=== PATIENT | male | born 1985 | race African-American/Black ===

== ENCOUNTER 2016-10-24 19:39 | Inpatient (IN) | payer MEDICAID ==
[~2016-10-24] VITALS: Ht 180.3 cm; Wt 61.3 kg
[2016-10-24] MEDS ORDERED: SODIUM CHLORIDE 0.9% 1,000 ML IV ONE (19:45)
[2016-10-24 21:29] LABS: *AMPHETAMINES SCREEN URINE NEGATIVE (NEGATIVE); *BARBITURATES SCREEN URINE NEGATIVE (NEGATIVE); *BENZODIAZEPINES SCREEN URINE NEGATIVE (NEGATIVE); *COCAINE SCREEN URINE NEGATIVE (NEGATIVE); CANNABINOID URINE SCREEN PRESUMTIVE POSITIVE (NEGATIVE); METHADONE URINE SCREEN NEGATIVE (NEGATIVE); OPIATES URINE SCREEN NEGATIVE (NEGATIVE); PHENCYCLIDINE URINE SCREEN NEGATIVE (NEGATIVE)
[2016-10-24 22:31] LABS: CARBON DIOXIDE 27 mEq/L (21-32); CHLORIDE 108 mEq/L (98-107)
[2016-10-24 22:33] LABS: HEMOGLOBIN. 13.1 g/dL (14.0-18.0); MEAN CORPUSCULAR HEMOGLOBIN 30.7 pg (28.0-32.0); MEAN CORPUSCULAR VOLUME 86.9 fL (80.0-94.0); PLATELET 186 x1000/uL (130-400); RED BLOOD CELL COUNT 4.26 mill/uL (4.7-6.1); RED CELL DISTRIBUTION WIDTH 13.1 % (11.6-14.6)
[2016-10-24 22:53] LABS: PLATELET ESTIMATE NORMAL
[2016-10-25] VITALS (7 sets, daily range): BP systolic 90–101; BP diastolic 46–64
[2016-10-25] MEDS ORDERED: SODIUM CHLORIDE 0.45% 1,000 ML IV SCH (01:40)
[2016-10-25] MEDS ORDERED: ONDANSETRON HCL 4MG/2ML VIAL IV PRN (01:45)
[2016-10-25] MEDS ORDERED: IPRATROPIUM/ALBUTEROL 0.5-3(2.5)MG/3ML NEB INH PRN (01:45)
[2016-10-25] MEDS ORDERED: ENOXAPARIN 40MG/0.4ML SYR SUBCUT SCH (01:45)
[2016-10-25] MEDS ORDERED: HYDROCODONE/ACETAMINOPHEN 5/325MG TABLET PO PRN (01:45)
[2016-10-25] MEDS ORDERED: DIPHENHYDRAMINE 50MG/ML VIAL IV PRN (01:45)
[2016-10-25] MEDS ORDERED: HYDROMORPHONE HCL/PF 2MG/ML CPJ IV PRN ×2 (01:45→03:00)
[2016-10-25] MEDS ORDERED: ACETAMINOPHEN 325MG TABLET PO PRN ×2 (01:45→22:00)
[2016-10-25] MEDS ORDERED: CLONIDINE 0.1MG TABLET PO PRN (01:45)
[2016-10-25] MEDS ORDERED: DOCUSATE SODIUM 100MG CAPSULE PO PRN (01:45)
[2016-10-25] MEDS ORDERED: LORAZEPAM 2MG/ML CPJ IV PRN (01:45)
[2016-10-25] MEDS ORDERED: MAGNESIUM/ALUMINUM HYDROXIDE/SIMETHICONE 30ML UDC PO PRN (01:45)
[2016-10-25] MEDS ORDERED: GUAIFENESIN 200MG/10ML SUGAR FREE UDC PO PRN (01:45)
[2016-10-25] MEDS ORDERED: NA PHOS,M-B/NA PHOS,DI-BA ENEMA 118ML PR PRN ×2 (01:45→03:00)
[2016-10-25 02:46] LABS: CARBON DIOXIDE 27 mEq/L (21-32); CHLORIDE 113 mEq/L (98-107)
[2016-10-25] MEDS: SODIUM CHLORIDE 0.45% 1,000 ML IV SCH ×3 (03:42→21:12)
[2016-10-25 06:26] LABS: BASOPHILS % 0.5 % (0.0-2.0); EOSINOPHILS % 1.1 % (0.0-5.0); HEMATOCRIT. 38.7 % (42.0-52.0); HEMOGLOBIN. 13.3 g/dL (14.0-18.0); LYMPHOCYTES % 22.5 % (20.0-50.0); MEAN CORPUSCULAR VOLUME 87.7 fL (80.0-94.0); MEAN PLATELET VOLUME 9.3 fl (7.4-10.4); MONOCYTES % 10.5 % (2.0-8.0); NEUTROPHILS % 65.4 % (40.0-76.0); PLATELET 183 x1000/uL (130-400); RED BLOOD CELL COUNT 4.41 mill/uL (4.7-6.1); RED CELL DISTRIBUTION WIDTH 13.3 % (11.6-14.6)
[2016-10-25 07:30] LABS: CARBON DIOXIDE 26 mEq/L (21-32); CHLORIDE 111 mEq/L (98-107); HDL CHOLESTEROL 47 mg/dL (40-59); LDL CHOLESTEROL 72 mg/dL (5-100)
[2016-10-25] MEDS: ASPIRIN 81MG EC TABLET PO SCH (08:40)
[2016-10-25] MEDS: ENOXAPARIN 40MG/0.4ML SYR SUBCUT SCH (08:40)
[2016-10-25] MEDS ORDERED: ASPIRIN 81MG EC TABLET PO SCH (09:00)
[2016-10-26] VITALS: BP 109/55
[2016-10-26 04:00] VITALS: BP 99/63
[2016-10-26 08:00] VITALS: BP 102/67
[2016-10-26] MEDS: ASPIRIN 81MG EC TABLET PO SCH (08:32)
[2016-10-26] MEDS: ENOXAPARIN 40MG/0.4ML SYR SUBCUT SCH (08:33)
[2016-10-26] MEDS: SODIUM CHLORIDE 0.45% 1,000 ML IV SCH ×2 (11:13→11:34)
[2016-10-26 12:00] VITALS: BP 122/66
[2016-10-26 12:48] VITALS: BP 102/67
== END 2016-10-26 13:30 | disposition home or self-care (01) | DRG 812 ==
LOC: ER 20:00 → 7WST 10-25 00:59 → ENRESERV 10-25 01:35 → ER 10-25 02:54
PROVIDERS: ADMIT Internal Medicine; ATTEND Internal Medicine
DX: T40.7X1A Poisoning by cannabis (derivatives), accidental (unintentional), initial encounter (principal); G92 Toxic encephalopathy; E86.0 Dehydration; F41.0 Panic disorder [episodic paroxysmal anxiety]; F17.210 Nicotine dependence, cigarettes, uncomplicated; F12.90 Cannabis use, unspecified, uncomplicated; Y92.89 Other specified places as the place of occurrence of the external cause
CPT/HCPCS: 36415; 70450; 80048; 80053; 80061; 80305; 84484; 85007; 85025; 85027; 93005; 96360; 99285; J1650; J7030